=== PATIENT | female | born 1990 ===

== ENCOUNTER 2022-03-12 13:49 | Inpatient (IN) | payer OTHER ==
[~2022-03-12] VITALS: Ht 154.9 cm; Wt 83.2 kg
[2022-03-12 19:18] VITALS: BP 128/75; PULSE 93; TEMP 98.3
--- NOTE | 2022-03-12 20:05 | NUR ---
CYTOTEC INDUCTION PROCEDURE EXPLAAINED TO PATIENT AND SPOUSE, THEY VERBALIZED UNDERSTANDING. PATIENT AMBULATED TO THE BATHROOM WITH STEADY GAIT, VOID X 1. CAT 1 TRACING. SVE 0/0/-3. CYTOTEC PLACED. EXPLAINED TO PATIENT THAT SHE WILL NEED TO STAY IN BED FOR TWO HOURS, CURRENTLY SHE IS IN THE RIGHT TILT POSITION. BED LOWERED, LOCKED AND CALL LIGHT IN REACH.
[2022-03-12 20:22] LABS: BASO % 0.3 % (0.0-2.0); EOS # 0.1 K/mm3 (0.0-0.7); EOS % 1.4 % (0.0-4.0); GRAN # 7.4 K/mm3 (1.4-6.5); GRAN % 72.3 % (42.2-75.2); HEMOGLOBIN 11.2 g/dl (12.5-16.0); LYMPH % 19.4 % (20.0-51.0); MEAN CELL VOLUME 89 fl (80.0-100.0); MEAN CORPUSCULAR HEMOGLOBIN 29 pg (27-31); MEAN CORPUSCULAR HGB CONC 33 g/dl (33.0-37.0); MONO # 0.6 K/mm3 (0.1-0.6); PLATELET COUNT 316 K/mm3 (130-400); RED BLOOD COUNT 3.82 M/mm3 (4.10-5.30); REDCELL DISTRIBUTION WIDTH-CV 14.3 % (11.5-14.5)
[2022-03-12 20:23] LABS: HEMATOCRIT 33.9 % (37.0-47.0)
[2022-03-12 20:30] VITALS: BP 101/57; PULSE 94
[2022-03-12 20:40] VITALS: BP 106/59; PULSE 96
--- NOTE | 2022-03-12 21:25 | NUR ---
1917 PATIENT ARRIVES AMBULATORY TO ROOM 6 FOR SCHEDULED INDUCTION, SPOUSE IS WITH HER. CLEAN GOWN ON. 1924 SVE 0/0/-3. CONSENTS SIGNED. CALL LIGHT AND ROOM EXPLAINED TO PATIENT AND SPOUSE. CYTOTEC INDUCTION PROCEDURE DISCUSSED, VERBALIZED UNDERSTANDING. TOCO AND U//S APPLIED, VITAL SIGNS TAKEN. 1943 iv STARTED, LABS DRAWN, LR BOLUS STARTED. BED LOWERED, CALL LIGHT IN PLACE.
[2022-03-12 21:30] VITALS: BP 102/57; PULSE 90
[2022-03-13] VITALS (39 sets, daily range): BP systolic 54–145; BP diastolic 47–122; PULSE 66–116; TEMP 97.8–98.4
--- NOTE | 2022-03-13 | NUR ---
SVE 06/07/-3. PATIENT UNCOMFORTABLE WITH CONTRACTIONS EVERY 2-6 MINUTES LASTING 60-120 SECONDS. 2ND DOSE OF CYTOTEC NOT PLACED DUE TO CERVICAL CHANGE AND CONTRACTION PATTERN. WILL REEVALUATE IN TWO HOURS. PATIENT VERBALIZED UNDERSTANDING. BED LOCKED, LOWERED AND CALL LIGHT IN PLACE.
--- NOTE | 2022-03-13 02:20 | NUR ---
PATIENT AMBULATED TO BATHROOM, VOIDED X 1. VITAL SIGNS TAKEN. SVE 06/07/-3. 2ND DOSE OF CYTOTEC PLACED AT THIS TIME. PATIENT VERBALIZED UNDERSTANDING OF STAYING FLAT WITH TILT IN BED FOR ONE HOUR FOLLOWED BY ANOTHER HOUR OF STAYING IN BED. BED LOCLED, LOWERED AND CALL LIGHT IN REACH. PATIENT REMAINS ON CLEAR LIQUID DIET.
--- NOTE | 2022-03-13 04:00 | NUR ---
SVE 07/08/, [facility] IN[facility]. PROVIDED APPLE JUICE AND WATER. BED LOCKED AND LOWERED, CALL LIGHT IN REACH.
--- NOTE | 2022-03-13 05:04 | NUR ---
STADOL 1MG IV GIVEN FOR PAIN RATED 7/10 BY PATIENT. DENIES EPIDURAL AT THIS TIME. IS AT BEDSIDE. PATIENT SITS ON BEDPAN X 2, UMNABLE TO VOID, CHUCKS PAD DRY. LR INFUSING AT 125ML.HR. BED IS LOWERED AND LOCKED, CALL LIGHT IN REACH. TISSUES IVEN FOR NOSE REQUESTED BY PATIENT.
--- NOTE | 2022-03-13 06:10 | NUR ---
BEDSIDE SBAR GIVEN TO Marta IBRAHIM RN.
--- NOTE | 2022-03-13 08:50 | NUR ---
[phone] THIS RN IN ROOM, CHANGING PT POSITION, LR INFUSING SVE 0743 . SROM [id number] MORENO REQUEST. 0815 SVE BY THIS RN 0826 DR ZAMARRIPA CALLED WITH UPDATE.
--- NOTE | 2022-03-13 09:15 | NUR ---
DR ZAMARRIPA IN PT'S ROOM REVIEWING FHR STRIP AND DISCUSSING PLAN OF CARE SVE /-2. DR ZAMARRIPA DISCUSSES WITH THIS RN GOING TO ASSIST WITH A SURGERY AND IF PT IS UNCHANGED AFTERWARDS AND HAVING DECELERATIONS DOING A C SECTION
--- NOTE | 2022-03-13 09:43 | NUR ---
PT CONTRACTIONS INVERTING WHILE IN KNEE CHEST
--- NOTE | 2022-03-13 10:25 | NUR ---
1025 DR ZAMARRIPA DISCUSSES SECTION WITH PT.
--- NOTE | 2022-03-13 11:11 | NUR ---
QBL OF SPONGE LAPS: 450ML
[2022-03-14 03:05] VITALS: BP 91/54; PULSE 63; TEMP 98.2
[2022-03-14 07:00] VITALS: BP 100/57; PULSE 73; TEMP 97.9
--- NOTE | 2022-03-14 09:56 | NUR ---
Initial visit; Parents thanked for offering congratulations and a blessing for the of their daughter. presented family with a Certificate of [place].
[2022-03-14 16:18] VITALS: BP 110/68; PULSE 78; TEMP 98
[2022-03-14 21:00] VITALS: BP 108/70; PULSE 80; TEMP 97.9
[2022-03-15] MEDS ORDERED: IBU600 MG PO (05:33)
[2022-03-15] MEDS ORDERED: ROXICODONE 55 MG/TAB PO (05:34)
[2022-03-15 07:50] VITALS: BP 106/69; PULSE 80; TEMP 98
== END 2022-03-15 11:15 | disposition home or self-care (01) | DRG 788 ==
LOC: OB 13:49 → LDR 19:03 → OB 19:03
PROVIDERS: ADMIT Obstetrics & Gynecology
PROC: 3E0P7VZ Introduction of Hormone into Female Reproductive, Via Natural or Artificial Opening (ICD-10-PCS; 2022-03-12)
PROC: 10D00Z1 Extraction of Products of Conception, Low, Open Approach (ICD-10-PCS; principal; 2022-03-13)
DX: O48.0 Post-term pregnancy (principal); Z3A.40 40 weeks gestation of pregnancy; O76 Abnormality in fetal heart rate and rhythm complicating labor and delivery; O62.0 Primary inadequate contractions; O26.53 Maternal hypotension syndrome, third trimester; O99.02 Anemia complicating childbirth; D64.9 Anemia, unspecified; O99.344 Other mental disorders complicating childbirth; F90.9 Attention-deficit hyperactivity disorder, unspecified type; O77.0 Labor and delivery complicated by meconium in amniotic fluid; Z37.0 Single live birth; Z86.16 Personal history of COVID-19
CPT/HCPCS: J0171; J0595; J0690; J1100; J1885; J2405; J2590; J7120

== ENCOUNTER 2023-09-07 13:26 | Emergency (ER) | payer OTHER ==
[~2023-09-07] VITALS: Ht 154.9 cm; Wt 81.8 kg
[~2023-09-07 13:26] MED LIST: IBU600 MG PO; ROXICODONE 55 MG/TAB PO
[2023-09-07 13:29] VITALS: BP 106/70; TEMP 98.4
[2023-09-07] MEDS ORDERED: Acetaminophen 500 MG TAB PO ONE (14:00)
[2023-09-07 15:24] VITALS: PULSE 83
== END 2023-09-07 15:24 | disposition home or self-care (01) ==
LOC: COL.ER 13:26
DX: O99.891 Other specified diseases and conditions complicating pregnancy (principal); M25.571 Pain in right ankle and joints of right foot; M79.89 Other specified soft tissue disorders; Z3A.34 34 weeks gestation of pregnancy